=== PATIENT | female | born 1930 | race Caucasian/White ===

== ENCOUNTER 2016-12-22 00:11 | Day surgery (SDC) | payer MEDICARE, OTHER ==
[~2016-12-22] VITALS: Ht 157.5 cm; Wt 68.0 kg
[~2016-12-22 00:11] MED LIST: AMOX500C2 PO; ASPI-973 PO; ATOR20TA PO; CHOL10008 PO; FELO5TAB4 PO; FURO-128 PO; HUM100IN3 SUBQ; LOSA100T29 PO; MULT-1073 PO; POTA10TA12 PO; RIVA20TA PO; SITA100T12 PO; ZINC50TA4 PO
[2016-12-22] MEDS ORDERED: Lactated Ringer's 1,000 ML IV SCH (05:00)
[2016-12-22] MEDS ORDERED: Benzoc-Butamben-Tetraca Spray 20 Gm Spray TOPICAL ONE (06:00)
[2016-12-22] MEDS ORDERED: 0.9% Sodium Chloride 1,000 ML IV SCH (08:21)
[2016-12-22 08:45] VITALS: BP 123/58; PULSE 72; RESP 19; O2SAT 92
--- NOTE | 2016-12-22 08:45 | NUR ---
ADMISSION NOTE FEMALE PT ADMITTED FOR [facility]. SEE ADMIT AND FLOW SHEET
[2016-12-22] MEDS ORDERED: FURO-129 PO (09:33)
[2016-12-22] MEDS ORDERED: APIX5TAB PO (09:36)
--- NOTE | 2016-12-22 11:00 | NUR ---
DR ADKINS AND ANESTHESIA HERE. ECHO HERE PROCEDURE STARTED. SEE ANESTHESIA RECORD
--- NOTE | 2016-12-22 11:28 | NUR ---
PROCEDURE COMPLETE - SEE FLOW SHEET
[2016-12-22 11:29] VITALS: BP 112/61; PULSE 71; RESP 30; O2SAT 97
[2016-12-22 11:39] VITALS: BP 112/61; PULSE 77; RESP 30; O2SAT 97
[2016-12-22 11:45] VITALS: BP 128/78; PULSE 77; RESP 18; O2SAT 97
--- NOTE | 2016-12-22 11:47 | PCM.HPANE ---
Patient Data Date of Service: Dec 22, 2016 ([id number]) Surgeon Admitting Provider: Attending Provider:Vance Reinoso MD Primary Care Physician:Juliot Encinas MD Other Provider:Tony Hickman Anesthesia Reason for Visit Endocarditis Ht/WT & BMI Body Mass Index Allergies Coded Allergies: rivaroxaban (Verified Allergy, Intermediate, 12/22/16) codeine (Verified Allergy, Unknown, Nausea,Vomiting, 12/22/16) ibuprofen (Verified Adverse Reaction, Unknown, Nausea, 12/22/16) Past Anesthesia History Anesthesia History: Denies:: Anesthesia Reactions Diabetes History Hx Diabetes?: Yes Medications Reported Medications Apixaban (Eliquis)5 Mg Tablet5 Mg PO BID 12/22/16 Furosemide (Lasix)20 Mg Emjnoh33 Mg PO DAILY 30 Days Ref 0 12/22/16 Zinc Gluconate (Zinc)50 Mg Bemstt99 Mg PO DAILY 10/28/16 Cholecalciferol (Vitamin D3) (Vitamin D3)1,000 Unit Tab.chew2,000 Unit PO DAILY 10/28/16 Potassium Chloride ER 10 Meq Bjqajg67 Meq PO DAILY Ref 0 TAKE WITH FOOD 10/28/16 Losartan Potassium 100 Mg Cymddb379 Mg PO DAILY 10/28/16 Atorvastatin (Lipitor)20 Mg Cpnnkc69 Mg PO DAILY Ref 0 10/28/16 Furosemide (Lasix)40 Mg Zrilio12 Mg PO DAILY 30 Days Ref 0 10/28/16 Sitagliptin Phos (Januvia)100 Mg Uilkck495 Mg PO DAILY Ref 0 10/28/16 Hum Insulin NPH/Reg Insulin Hm (HUMulin 70/30 U100 Insulin Kwikpen)100 Unit/1 Ml Insuln.pen1 Unit SUBQ per protocol #1 PENINJ Ref 0 10/28/16 Felodipine ER 5 Mg Tab.er.24h5 Mg PO DAILY Ref 0 10/28/16 Multivits-Min/FA/Lycopene/Lut (Centrum Silver Tablet)1 Each Tablet1 Each PO DAILY 10/28/16 Aspirin 81 Mg Eocdfh19 Mg PO DAILY Ref 0 10/28/16 Amoxicillin 500 Mg Capsule2,000 Mg PO 1 hr before dental Ref 0 10/28/16 History History of ENT Problems?: Yes HEENT History: Positive for:: Cataracts (sx) Denies:: Abnormal Airway Difficult Intubation Dysphagia Glaucoma Hearing Problem Sinus Problem TMJ Denture Type: None Teeth Condition: Missing Teeth Hx of Heart Problems?: Yes Cardiovascular History: Positive for:: Cardiac Surgery (AVR, PM) Irregular Heartbeat Denies:: AICD Abdominal Aortic Aneurism Atrial Fibrillation Chest Pain Congestive Heart Failure Coronary Artery Disease Edema Heart Murmur Hypertension Pacemaker Peripheral Vascular Rheumatic Fever Thrombophlebitis Valvular Heart Disease Hx of Respiratory Problem?: No Respiratory History: Denies:: Asthma COPD Chest Surgery Cough Dyspnea Emphysema Hemoptysis Oxygen Administration Pneumonia Pulmonary Embolism Tuberculosis Use of C-PAP Machine Use of Inhalers / NEBS Hx Neurologic Problems?: No Hx of GI Problems?: No Hx of Problems?: No Hx Musculoskeletal Problems?: No Hx of Psycho/Social Problems?: No Hx Surgeries?: Yes Hx Any Other Health Problems?: Yes Other History: Positive for:: Cancer (Rt breast Ca w/mastectomy) Hospitalization History Blood Transfusions: Denies:: Blood Transfusions Hx Diabetes: Yes Hx Alcohol Use: NoHx Substance Use: No Stop/Bang Risk Assessment Category Category 1A: Patient has history of documented sleep apnea, and HAS NOT received any narcotic, sedative or anesthesia administration during this stay. Category 1B: Patient has history of documented sleep apnea, and HAS received any narcotic , sedative or anesthesia administration during this stay Category 2: Patient has SUSPECTED Obstructive Sleep Apnea, and HAS received any narcotic , sedative or anesthesia administration during this stay. Category 3: Patient has SUSPECTED Obstructive Sleep Apnea and HAS NOT received narcotic, sedative or anesthesia administration during this stay. Category 4: Outpatient in Procedural Areas with known sleep apnea or who screen positive for High Risk via the STOP/BANG questionnaire. Exam Exam General Appearance: Alert, Oriented X3, Cooperative, No Acute Distress HEENT/AIRWAY: MP 2 Lungs: Clear to Auscultation Heart: Exam Unremarkable Plan Impression Patient chart reviewed, patient interviewed and anesthestic plan with risks, benefits, and alternatives discussed, and informed consent obtained. ASA Physical Status: ASA3 Severe Disease Anesthetic Plan: MAC Bene/Risks/Altern/Consents: Yes HP Complete Prior to Induction: Yes Kristian Parker MD Dec 22, 2016 07:51
--- NOTE | 2016-12-22 11:47 | PCM.ANEP1 ---
Post Anesthesia PACU Phase 1 Assessment Vital Signs Vital Signs Date Time Temp Pulse Resp B/P Pulse Ox O2 Delivery O2 Flow Rate FiO2 12/22/16 11:39 77 30 112/61 97 Room Air 12/22/16 11:29 71 30 112/61 97 Nasal Cannula 3.00 12/22/16 08:45 37.2 72 19 123/58 92 Room Air Anesthetic Administered: GA Level of Alertness: Awake, talking Pain: No Nausea or Vomiting: No CV Function & Hydration Stable: Yes Airway Device: Oxygen Delivery: Nasal Cannula Lungs: Clear to Auscultation Dermatome Level: Full Sensation PACU Phase 2 Assessment Complications: No Patient Instructions Provided: N/A Kristian Parker MD Dec 22, 2016 11:47
--- NOTE | 2016-12-22 11:57 | NUR ---
DISCHARGE Pt dishared to home with her friend, A and Ox3, VSS and WNL on RA, pt stated verbal understanding of dishcarge instructions regarding changes to home medications, signs of worsening condition and follow up appointments. Pt and her friend left with personal belongings, discharge paperwork,IV Dc'd intact at approximately 1150.
--- NOTE | 2016-12-22 12:09 | DRSVH ---
[facility] [address] [place] [address] Echocardiogram Report Name: HERMAN GRIJALVA MStudy Date : 12/22/2016 Height: 62 in Hospital Exam Location: [facility] Weight: 155 lb Gender: Female BSA: 1.7 m2 : 1930 Age: 86 yrs BP: 103/65 mmHg Reason For Study: Endocarditis Ordering Physician: Vance Reinoso Performed By: Elizabeth North Referring Physician: VANCE REINOSO Interpretation Summary Mobile echogenicities are still appreciated on pacer wires. No significant changes since prior study. Procedure: Informed consent for Transesophageal Echocardiogram, and use of a contrast agent as needed, was obtained prior to the procedure. The transesophageal probe was passed without difficulty. Limited views were obtained. The patient's vital signs, including blood pressure, heart rate, pulse oximetry and cardiac rhythm were monitored throughout the procedure and remained stable. Comparison is made with the echocardiogram of 11/01/2016. The patient was in normal sinus rhythm during the exam. There were no complications. Atria: There is a catheter/pacemaker lead seen in the right atrium. Mitral Valve: There is severe mitral annular calcification. Aortic Valve: There is a bioprosthetic aortic valve. Reading Physician:JOSE
== END 2016-12-22 23:59 | disposition home or self-care (01) ==
LOC: SOUO 00:11
PROVIDERS: ATTEND Internal Medicine Cardiovascular Disease
DX: I34.8 Other nonrheumatic mitral valve disorders (principal); Z95.3 Presence of xenogenic heart valve; Z95.1 Presence of aortocoronary bypass graft; I25.10 Atherosclerotic heart disease of native coronary artery without angina pectoris; Z95.0 Presence of cardiac pacemaker